=== PATIENT | male | born 1980 | race Caucasian/White ===

== ENCOUNTER 2017-05-10 10:27 | Emergency (ER) | payer BC ==
--- NOTE | 2017-05-10 10:40 | PDOC ---
History of Present Illness - General Chief Complaint: Pain Stated Complaint: RT HIP RT LEG PAIN Time Seen by Provider: 05/10/17 10:37 History Source: Patient Exam Limitations: No Limitations - History of Present Illness Initial Comments: 36 yo M history spine surgery presents with R hip/pelvis pain radiating to the R medial knee for past 1 day. He states he was walking for most of the day yesterday, started to develop pain to the R hip which quickly escalated. He has taken ibuprofen for pain without any relief. No weakness, numbness. No known trauma, no falls. No recent illness, fever. Pain is now severe. Past History - Past Medical History Allergies/Adverse Reactions: Allergies Allergy/AdvReac Type Severity Reaction Status Date / Time Penicillins Allergy Unknown Verified 05/10/17 10:28 Home Medications: Ambulatory Orders Ibuprofen 800 mg PO ONCE PRN 05/10/17 Methocarbamol [Robaxin -] 500 mg PO BID PRN #14 tablet 05/10/17 Oxycodone HCl/Acetaminophen [Percocet 5-325 mg Tablet] 1 - 2 tab PO Q6H PRN #24 tab MDD 8 tabs 05/10/17 Review of Systems - Review of Systems Able to Perform ROS?: Yes Comments:: GENERAL/CONSTITUTIONAL: No fever or chills. No weakness. HEAD, EYES, EARS, NOSE AND THROAT: No change in vision. No ear pain or discharge. No sore throat. CARDIOVASCULAR: No chest pain or shortness of breath. RESPIRATORY: No cough, wheezing, or hemoptysis. GASTROINTESTINAL: No nausea, vomiting, diarrhea or constipation. GENITOURINARY: No dysuria, frequency, or change in urination. MUSCULOSKELETAL: No neck or back pain. +R hip pain radiating to knee. SKIN: No rash NEUROLOGIC: No headache, vertigo, loss of consciousness, or change in strength/ sensation. ENDOCRINE: No increased thirst. No abnormal weight change. HEMATOLOGIC/LYMPHATIC: No anemia, easy bleeding, or history of blood clots. ALLERGIC/IMMUNOLOGIC: No hives or skin allergy. *Physical Exam - Physical Exam Comments: GENERAL: Awake, alert, and fully oriented, in no acute distress HEAD: No signs of trauma EYES: PERRLA, EOMI, sclera anicteric, conjunctiva clear ENT: Auricles normal inspection, hearing grossly normal, nares patent, oropharynx clear without exudates. Moist mucosa NECK: Normal ROM, supple, no lymphadenopathy, JVD, or masses LUNGS: Breath sounds equal, clear to auscultation bilaterally. No wheezes, and no crackles HEART: Regular rate and rhythm, normal S1 and S2, no murmurs, rubs or gallops ABDOMEN: Soft, nontender, normoactive bowel sounds. No guarding, no rebound. No masses EXTREMITIES: +Tenderness to R hip. +R medial hamstring spasm. Dec ROM due to pain. No edema. No clubbing or cyanosis. No cords, erythema, or tenderness NEUROLOGICAL: Cranial nerves II through XII grossly intact. Normal speech. Strength and sensation. +Antalgic gait SKIN: Warm, Dry, normal turgor, no rashes or lesions noted. 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 He took "1200 mg ibuprofen" this AM (uncertain of dose- I counseled him not to use more than recommended on bottle for risk of PUD) without relief. Will give robaxin and obtain XR to further evaluate. If no acute findings, will refer to ortho as outpatient, as he may require MRI if symptoms persist. 05/10/17 11:45 XR reviewed with patient- recommended glucosamine supplement. Ibuprofen for pain , percocet for breakthrough. Robaxin for hamstring spasm, as well as foam roller. He is traveling to [place] this week, recommended renting a scooter to avoid further injury to the hip. Ortho f/u for further evaluation. Reference #: [id number]- no prior Rx history. *DC/Admit/Observation/Transfer Diagnosis at time of Disposition: Hip pain, right Degenerative joint disease Qualifiers: Osteoarthritis location: hip Osteoarthritis type: unspecified Laterality: right Qualified Code(s): M16.11 - Unilateral primary osteoarthritis, right hip - Discharge Dispostion Disposition: HOME Condition at time of disposition: Stable Admit: No - Referrals Referrals: Roderick Hope MD [Staff Physician] - - Patient Instructions Printed Discharge Instructions: Dietary Supplements For Osteoarthritis, DI for Osteoarthritis - Post Discharge Activity
[2017-05-10 10:46] VITALS: BP 150/86; PULSE 110; TEMP 98.2; BMI 31.1
[2017-05-10] MEDS ORDERED: METHOCARBAMOL 500 MG TABLET PO ONE (10:52)
[2017-05-10] MEDS ORDERED: METHOCARBAMOL 500 MG TABLET ONE (10:58)
== END 2017-05-10 12:01 | disposition home or self-care (01) ==
LOC: FER 10:27
DX: M25.551 Pain in right hip (principal); M16.11 Unilateral primary osteoarthritis, right hip
CPT/HCPCS: 73523-TC; 99282-25